=== PATIENT | male | born 1955 | race Caucasian/White ===

== ENCOUNTER → 2018-10-18 | Outpatient (CLI) | payer BC ==
[~2018-10-18] MED LIST: ATRV10T PO; BACL20TA PO; CPR500T PO; DIAZ2TAB2 PO; DOCU100T7 PO; FOLI1TAB6 PO; FURO20TA4 PO; HYDR-3583 PO; MIRT15TA6 PO; OMEG1CAP51 PO; OXYC-272 PO; POTA10CA43 PO; SERT25TA PO; TMSL.4C PO; VITA800C PO
--- NOTE | 2018-10-18 20:37 | Diagnostic Imaging Report ---
INDICATION: Neck pain. Woke up three days ago with stiff neck. TECHNIQUE: AP, lateral, swimmer's, and odontoid views cervical spine. CORRELATION STUDY: None. FINDINGS: Postoperative changes to the cervical spine which include anterior plate and screws at the C3-C4 level. Cerclage wires are superimposed over the C3 spinous process. The cervical spinal alignment is limited in evaluation on this study but appears to be with some straightening. There does appear to be additional bony fusion across the C4-C5 level with marked disc space narrowing at the C5-C6 level. Endplate osteophyte formation likely results in some neuroforaminal narrowing. This appears most pronounced at the C3-C4 level. Hypertrophic facet arthropathy. Head is tilted towards the right. IMPRESSION: 1. Limited imaging of the cervical spine. There do appear to be areas of both surgical and bony fusion across the cervical spine. If further assessment is desired, CT and/or MRI may be of additional benefit. Dictated by: Dictated on workstation # [id number]
== END ==
LOC: RAD 16:13
PROVIDERS: ATTEND Internal Medicine
DX: M54.2 Cervicalgia (principal); Z98.1 Arthrodesis status
CPT/HCPCS: 72040

== ENCOUNTER → 2020-01-30 | Outpatient (CLI) | payer MEDICARE, OTHER ==
--- NOTE | 2020-01-30 14:30 | Diagnostic Imaging Report ---
INDICATION: Abdominal pain. TIME OF EXAM: 12:00 PM Multiple calcific densities overlie the right renal shadow consistent with renal calculi. Dominant calculus is most consistent with staghorn. Bowel gas pattern is nonobstructed. No definite free air is identified. Degenerative changes with spurring of the right lateral acetabulum is noted. IMPRESSION: Right renal calculi with large staghorn. No other significant abnormality is detected. Dictated by: Dictated on workstation # [id number]
== END ==
LOC: RAD 13:47
PROVIDERS: ATTEND Internal Medicine
DX: N20.0 Calculus of kidney (principal)
CPT/HCPCS: 74018

== ENCOUNTER → 2020-08-28 | Outpatient (CLI) | payer MEDICARE, OTHER ==
--- NOTE | 2020-08-28 10:22 | Diagnostic Imaging Report ---
INDICATION: Right ankle ulceration Three views of the right ankle show no fracture, dislocation or other acute abnormalities. There are postsurgical changes from internal fixation of the right ankle with hardware removal. There is calcific arteriosclerosis. IMPRESSION: Old healed fractures of the distal fibula. No acute abnormality is seen. Dictated by: Dictated on workstation # [id number]
== END ==
LOC: RAD 09:52
PROVIDERS: ATTEND Nurse Practitioner Family
DX: L97.319 Non-pressure chronic ulcer of right ankle with unspecified severity (principal)
CPT/HCPCS: 73610

== ENCOUNTER → 2021-02-01 | Outpatient (CLI) | payer MEDICARE, OTHER ==
[~2021-02-01] VITALS: Ht 175 cm; Wt 79.5 kg
[~2021-02-01] MED LIST changes: +ACETAMINOPHEN 500 MG TAB (TYLENOL) PO PRN; +CASIRIVIMAB/IMDEVIMAB 1,200 MG in NS (IVPB) 250 ML IV ONE; +EPINEPHrine INJECTION 1 MG/ML AMP IM PRN; +ONDANSETRON 4 MG/2 ML (SDV) Z0FRAN IV PRN; +diphenhydrAMINE 50 MG/ML INJ (BENADRYL) IV PRN
[2021-02-01 11:51] VITALS: BP 108/56
[2021-02-01 13:17] VITALS: BP 93/45
== END ==
LOC: INFUSION 11:46
PROVIDERS: ATTEND Nurse Practitioner Family
DX: Z23 Encounter for immunization (principal); U07.1 COVID-19

== ENCOUNTER → 2021-11-01 | Outpatient (CLI) | payer MEDICARE, OTHER ==
[~2021-11-01] MED LIST changes: -ACETAMINOPHEN 500 MG TAB (TYLENOL) PO PRN; -CASIRIVIMAB/IMDEVIMAB 1,200 MG in NS (IVPB) 250 ML IV ONE; +CATHETER FLUSH 10 ML SYR IV PRN; -EPINEPHrine INJECTION 1 MG/ML AMP IM PRN; +IOHEXOL 350 MG/ML 100 ML (OMNIPAQUE 350) VIAL IV ONE; +NS 100 ML (IVPB) BAG IV ONE; -ONDANSETRON 4 MG/2 ML (SDV) Z0FRAN IV PRN; -diphenhydrAMINE 50 MG/ML INJ (BENADRYL) IV PRN
--- NOTE | 2021-11-01 13:24 | Diagnostic Imaging Report ---
PROCEDURE: CT abdomen and pelvis with contrast. TECHNIQUE: Multiple contiguous axial images were obtained through the abdomen and pelvis after administration of intravenous contrast. Auto Exposure Controls were utilized during the CT exam to meet ALARA standards for radiation dose reduction. All CT scans use one or more of the following dose optimizing techniques: automated exposure control, MA and/or KvP adjustment based on patient size and exam type or iterative reconstruction. INDICATION: Abdominal and groin pain. COMPARISON: 07/28/2015 FINDINGS: No focal hepatic, pancreatic, gallbladder, adrenal gland or splenic abnormality is identified. Small cortical cyst arises from the lower pole of left kidney. Right staghorn calculus has shown mild interval increase in size measuring approximately 2.3 x 2.3 x 4.0 cm. There is focal volume loss again noted in the upper pole parenchyma of the right kidney. This may be related to previous infection or infarct. There is no evidence of ureteric stone or hydronephrosis. Mild left convexity curvature of the lumbar spine is noted with diffuse lumbar spondylosis. Note is made of lower abdominal colostomy site which has been placed since the previous study. Unopacified bladder is unremarkable apart from possible mild wall thickening and irregularity. There is no evidence of bowel hernia. There are advanced degenerative findings in the hip joints, greater on the right. There is no evidence of free fluid or organized fluid collection. Aortoiliac atherosclerotic calcification is noted. There is also calcification within the penis which was present on the previous study. IMPRESSION: Interval increase in size of right staghorn renal calculus without hydronephrosis or perinephric inflammation. There has been mild progression of degenerative findings in the spine and hip regions, however no acute abnormality seen. There is questionable mural thickening in the urinary bladder and consideration could be given to urinalysis for assessment. Dictated by: Dictated on workstation # [id number]
== END ==
LOC: RAD 13:15
PROVIDERS: ATTEND Internal Medicine
DX: N20.0 Calculus of kidney (principal); M16.10 Unilateral primary osteoarthritis, unspecified hip; M47.819 Spondylosis without myelopathy or radiculopathy, site unspecified
CPT/HCPCS: 74177

== ENCOUNTER → 2022-05-31 | Outpatient (CLI) | payer MEDICARE, OTHER ==
[2022-05-31 10:37] LABS: BASOPHILS % (AUTO) 0 % (0-10); EOSINOPHILS # (AUTO) 0.2 10^3/uL (0.0-0.3); EOSINOPHILS % (AUTO) 3 % (0-10); HEMATOCRIT 41 % (40-54); HEMOGLOBIN 13.3 g/dL (13.3-17.7); LYMPHOCYTES # (AUTO) 2.1 10^3/uL (1.0-4.0); LYMPHOCYTES % (AUTO) 28 % (12-44); MEAN CORPUSCULAR HEMOGLOBIN 30 pg (25-34); MEAN CORPUSCULAR HGB CONC 33 g/dL (32-36); MEAN CORPUSCULAR VOLUME 92 fL (80-99); MEAN PLATELET VOLUME 10.9 fL (9.0-12.2); MONOCYTES # (AUTO) 0.6 10^3/uL (0.0-1.0); MONOCYTES % (AUTO) 7 % (0-12); NEUTROPHILS # (AUTO) 4.6 10^3/uL (1.8-7.8); NEUTROPHILS % (AUTO) 61 % (42-75); PLATELET COUNT 225 10^3/uL (130-400); WHITE BLOOD COUNT 7.5 10^3/uL (4.3-11.0)
[2022-05-31 10:56] LABS: ALBUMIN 3.8 GM/DL (3.2-4.5); BILIRUBIN,TOTAL 0.3 MG/DL (0.1-1.0); CALCIUM 8.9 MG/DL (8.5-10.1); CREATININE SERUM 0.81 MG/DL (0.60-1.30); POTASSIUM 3.6 MMOL/L (3.6-5.0); TOTAL PROTEIN 7.2 GM/DL (6.4-8.2)
--- NOTE | 2022-05-31 11:57 | Diagnostic Imaging Report ---
PROCEDURE: CT abdomen and pelvis with contrast. TECHNIQUE: Multiple contiguous axial images were obtained through the abdomen and pelvis after administration of intravenous contrast. Auto Exposure Controls were utilized during the CT exam to meet ALARA standards for radiation dose reduction. All CT scans use one or more of the following dose optimizing techniques: automated exposure control, MA and/or KvP adjustment based on patient size and exam type or iterative reconstruction. INDICATION: Abdominal discomfort, pelvic pain, spasms, history of a unspecified cutaneous malignancy. Study compared 11/01/2021. Large staghorn calculus within the lower pole of the right kidney unchanged from prior and without hydronephrosis. There is no perinephric or periureteric stranding or edema. Some chronic scarring in the medial upper pole of the right kidney stable. Unobstructed contralateral left kidney stable and negative aside from a small exophytic benign Bosniak 1 cyst. Liver, gallbladder, bile ducts, spleen, adrenals and pancreas unremarkable. There is a left carl-abdominal stoma without its apparent complication. Bladder morphology in its trabeculations unchanged. Some tissue thickening along its left lateral wall however is more conspicuous measuring 9 mm. No perivesical stranding or edema. There is no abdominal, pelvic, mesenteric or retroperitoneal adenopathy. There is no ascites, abscess, hematoma or acute fluid collection. Small amount of residual contrast within the unobstructed distal large bowel noted. IMPRESSION: Right renal staghorn calculus without hydronephrosis unchanged. Chronic polar scarring on the right greater at the upper pole unchanged. Benign left renal cyst unchanged. Trabeculated urinary bladder has a similar morphology with thickening of its left lateral wall increased. Correlate with urinalysis. No bowel, biliary or urinary tract obstruction. No adenopathy. No ascites. Dictated by: Dictated on workstation # [id number]
== END ==
LOC: RAD 10:23
PROVIDERS: ATTEND Nurse Practitioner Family
DX: N20.0 Calculus of kidney (principal); N28.1 Cyst of kidney, acquired; Z85.828 Personal history of other malignant neoplasm of skin
CPT/HCPCS: 36415; 74177; 80053; 85025

== ENCOUNTER 2022-09-30 20:36 | Outpatient (CLI) | payer MEDICARE, OTHER ==
[~2022-09-30 20:36] MED LIST changes: -CATHETER FLUSH 10 ML SYR IV PRN; -IOHEXOL 350 MG/ML 100 ML (OMNIPAQUE 350) VIAL IV ONE; -NS 100 ML (IVPB) BAG IV ONE
== END 2022-10-01 06:25 | disposition home or self-care (01) ==
LOC: SLEEP 20:36
PROVIDERS: ATTEND Otolaryngology Otolaryngology/Facial Plastic Surgery
DX: G47.33 Obstructive sleep apnea (adult) (pediatric) (principal)
CPT/HCPCS: 95811